=== PATIENT | male | born 1985 | race Caucasian/White ===

== ENCOUNTER 2024-09-06 08:53 | Outpatient (CLI) | payer OTHER | END 2024-09-06 09:04 | disposition home or self-care (01) | LOC: SONOGRAMA 08:53 | PROVIDERS: ATTEND General Practice | DX: K75.9 Inflammatory liver disease, unspecified (principal); Z00.8 Encounter for other general examination; Z71.2 Person consulting for explanation of examination or test findings; Z11.3 Encounter for screening for infections with a predominantly sexual mode of transmission; R94.5 Abnormal results of liver function studies; E66.3 Overweight ==